=== PATIENT | female | born 1990 | race Two or more races ===

== ENCOUNTER 2016-08-21 10:17 | Emergency (ER) | payer OTHER ==
[2016-08-21 10:38] VITALS: BP 138/85
== END 2016-08-21 11:10 | disposition home or self-care (01) ==
LOC: ED 10:17
DX: L30.9 Dermatitis, unspecified (principal)

== ENCOUNTER 2017-04-05 09:51 | Emergency (ER) | payer OTHER ==
[~2017-04-05] VITALS: Ht 157.5 cm; Wt 63.5 kg
[2017-04-05 14:38] VITALS: BP 138/71
== END 2017-04-05 14:38 | disposition home or self-care (01) ==
LOC: ED 09:51
DX: S80.11XA Contusion of right lower leg, initial encounter (principal); R51 Headache; M54.2 Cervicalgia; V43.53XA Car driver injured in collision with pick-up truck in traffic accident, initial encounter; Y93.89 Activity, other specified; Y99.8 Other external cause status; Y92.411 Interstate highway as the place of occurrence of the external cause

== ENCOUNTER 2017-07-26 14:45 | Emergency (ER) | payer OTHER ==
[~2017-07-26] VITALS: Ht 154.9 cm; Wt 65.8 kg
[2017-07-26 15:03] VITALS: BP 151/87; Ht 154.9 cm; Wt 65.8 kg
== END 2017-07-26 17:50 | disposition left against medical advice (07) ==
LOC: ED 14:45
DX: Z53.21 Procedure and treatment not carried out due to patient leaving prior to being seen by health care provider (principal)

== ENCOUNTER 2017-09-20 11:54 | Emergency (ER) | payer OTHER ==
[~2017-09-20] VITALS: Ht 162.6 cm; Wt 65.3 kg
[2017-09-20 12:01] VITALS: BP 132/97; Ht 162.6 cm; Wt 65.3 kg
== END 2017-09-20 13:34 | disposition home or self-care (01) ==
LOC: ED 11:54
DX: M79.645 Pain in left finger(s) (principal); Z88.8 Allergy status to other drugs, medicaments and biological substances

== ENCOUNTER 2018-12-27 19:59 | Emergency (ER) | payer OTHER ==
[~2018-12-27] VITALS: Ht 160 cm; Wt 65.8 kg
[2018-12-27 20:16] VITALS: Ht 160 cm; Wt 65.8 kg
[2018-12-27 22:46] LABS: BASOPHIL % 0.4 % (0-2); PLATELET COUNT 288 x10^3mcL (130-400); RED CELL DISTRIBUTION WIDTH 13.3 % (11.5-14.5)
[2018-12-27 22:48] LABS: CALCIUM 8.3 mg/dL (8.5-10.1); CARBON DIOXIDE 23.2 mmol/L (21-32); CHLORIDE SERUM 106 mmol/L (98-107); CREATININE SERUM 0.8 mg/dL (0.6-1.0); GFR1 > 60 mL/min; GLUCOSE SERUM 99 mg/dL (74-106); POTASSIUM SERUM 3.2 mmol/L (3.5-5.1); SODIUM SERUM 141 mmol/L (136-145)
[2018-12-27 22:53] LABS: ALKALINE PHOSPHATASE 78 U/L (46-116); ALT/SGPT 55 U/L (14-59); AST/SGOT 21 U/L (15-37); BILIRUBIN TOTAL 0.3 mg/dL (0.20-1.00); TOTAL PROTEIN, SERUM 6.8 g/dL (6.4-8.2)
[2018-12-27 22:57] LABS: ALBUMIN 3.2 g/dL (3.4-5.0)
[2018-12-28 01:29] VITALS: BP 128/92
== END 2018-12-28 01:29 | disposition home or self-care (01) ==
LOC: ED 19:59
PROVIDERS: Emergency Medicine
DX: N34.2 Other urethritis (principal); Z91.040 Latex allergy status
CPT/HCPCS: 36415; 87491; 87591; J1885

== ENCOUNTER 2019-06-06 09:42 | Emergency (ER) | payer OTHER ==
[~2019-06-06] VITALS: Ht 154.9 cm; Wt 64.0 kg
[2019-06-06 09:48] VITALS: Ht 154.9 cm; Wt 64.0 kg
[2019-06-06 10:26] LABS: CALCIUM 8.9 mg/dL (8.5-10.1); CARBON DIOXIDE 23.2 mmol/L (21-32); CHLORIDE SERUM 104 mmol/L (98-107); CREATININE SERUM 0.7 mg/dL (0.6-1.0); GFR1 > 60 mL/min; GLUCOSE SERUM 103 mg/dL (74-106); POTASSIUM SERUM 3.3 mmol/L (3.5-5.1); SODIUM SERUM 138 mmol/L (136-145)
[2019-06-06 10:31] LABS: ALKALINE PHOSPHATASE 66 U/L (46-116); ALT/SGPT 35 U/L (14-59); AST/SGOT 16 U/L (15-37); BILIRUBIN TOTAL 0.6 mg/dL (0.20-1.00); TOTAL PROTEIN, SERUM 6.9 g/dL (6.4-8.2)
[2019-06-06 10:32] LABS: ALBUMIN 3.3 g/dL (3.4-5.0)
[2019-06-06 10:58] LABS: BASOPHIL % 0.4 % (0-2); PLATELET COUNT 288 x10^3mcL (130-400); RED CELL DISTRIBUTION WIDTH 13.7 % (11.5-14.5)
[2019-06-06 13:16] VITALS: BP 115/783
== END 2019-06-06 13:16 | disposition home or self-care (01) ==
LOC: ED 09:42
DX: O23.01 Infections of kidney in pregnancy, first trimester (principal); Z3A.01 Less than 8 weeks gestation of pregnancy
CPT/HCPCS: J0696; J7030; J7060